=== PATIENT | female | born 1960 | race Caucasian/White ===

== ENCOUNTER 2022-03-03 18:06 | Emergency (ER) | payer BC ==
[~2022-03-03] VITALS: Ht 175.3 cm; Wt 104.3 kg
[~2022-03-03 18:06] MED LIST: INVOKANA; LANTUS SOLOSTAR; LEXAPRO10 MG PO; LISINOPRIL; LOSARTAN-HCTZ1 EAC1; METFORMIN; METOPROLOL SUCC25 MG; PRAVASTATIN SOD40 MG; Z ACTOPLUS MET; Z.0.LANTUS100 UNIT/1; [UNRECOGNIZED DRUG - OTHER]
[2022-03-03] MEDS ORDERED: SODIUM CHLORIDE 0.9% 250ML 250 ML IV ONE (18:15)
[2022-03-03 19:58] LABS: BASOPHILS % 0.4 % (0.0-1.0); EOSINOPHILS # (AUTO) 0.2 (0.0-0.4); EOSINOPHILS % 2.1 % (0.0-6.0); LYMPHOCYTES # (AUTO) 1.6 (1.0-3.2); LYMPHOCYTES % 21.7 % (18.0-39.1); MEAN CORPUSCULAR HEMOGLOBIN 28.6 pg (28-32); MEAN CORPUSCULAR HGB CONC 30.8 g/dL (31-35); MEAN CORPUSCULAR VOLUME 92.9 fL (81-99); MONOCYTES # (AUTO) 0.6 (0.2-0.8); MONOCYTES % 7.7 % (4.4-11.3); NEUTROPHILS # (AUTO) 4.9 (2.1-6.9); NEUTROPHILS % 66.6 % (38.7-80.0); PLATELET COUNT 322 x10e3/uL (140-360); RED BLOOD COUNT 2.41 x10e6/uL (3.6-5.1)
[2022-03-03 20:00] LABS: HEMATOCRIT 22.4 % (34.2-44.1); HEMOGLOBIN 6.9 g/dL (12.0-16.0)
[2022-03-03 20:15] LABS: ALBUMIN 3.2 g/dL (3.5-5.0); ALBUMIN/GLOBULIN RATIO 0.8 (0.8-2.0); ANION GAP 17.6 mmol/L (8-16); CALCIUM 8.8 mg/dL (8.4-10.2); CREATININE, SERUM 4.79 mg/dL (0.57-1.11); POTASSIUM 4.6 mmol/L (3.5-5.1)
[2022-03-03] MEDS ORDERED: SODIUM CHLORIDE 0.9% 250ML 250 ML ONE (21:18)
== END 2022-03-04 00:20 | disposition home or self-care (01) ==
LOC: ER 18:15
DX: D64.9 Anemia, unspecified (principal); E11.22 Type 2 diabetes mellitus with diabetic chronic kidney disease; N18.6 End stage renal disease; Z99.2 Dependence on renal dialysis
CPT/HCPCS: 36415; 80053; 85025; 86850; 86900; 86920; 99284; J7050; P9016